=== PATIENT | male | born 1965 | race Caucasian/White ===

== ENCOUNTER 2020-09-02 19:19 | Inpatient (IN) | payer OTHER ==
[~2020-09-02] VITALS: Ht 188 cm; Wt 111.6 kg
[2020-09-02] MEDS ORDERED: SODIUM CHLORIDE 0.9% 1000ML 1,000 ML IV ONE (19:30)
[2020-09-02 20:11] LABS: BASOPHILS # (AUTO) 0.1 (0.0-0.1); BASOPHILS % 0.6 % (0.0-1.0); EOSINOPHILS # (AUTO) 0.3 (0.0-0.4); EOSINOPHILS % 2.7 % (0.0-6.0); HEMATOCRIT 48.8 % (38.2-49.6); LYMPHOCYTES # (AUTO) 2.1 (1.0-3.2); LYMPHOCYTES % 20.3 % (18.0-39.1); MEAN CORPUSCULAR HEMOGLOBIN 32.9 pg (28-32); MEAN CORPUSCULAR HGB CONC 34.8 g/dL (31-35); MEAN CORPUSCULAR VOLUME 94.4 fL (81-99); MONOCYTES # (AUTO) 1.1 (0.2-0.8); NEUTROPHILS # (AUTO) 6.6 (2.1-6.9); NEUTROPHILS % 64.8 % (38.7-80.0); PLATELET COUNT 235 x10e3/uL (140-360); RED BLOOD COUNT 5.17 x10e6/uL (4.3-5.7); RED CELL DISTRIBUTION WIDTH 12.6 % (11.7-14.4)
[2020-09-02 20:15] LABS: INR 1.07; PROTHROMBIN TIME 14.6 seconds (11.9-14.5)
[2020-09-02] MEDS: METRONIDAZOLE 500MG/NS 100ML 100 ML IV SCH (20:17)
[2020-09-02 20:24] LABS: ALANINE AMINOTRANSFERASE 24 IU/L (0-55); ALBUMIN 3.9 g/dL (3.5-5.0); ALBUMIN/GLOBULIN RATIO 0.9 (0.8-2.0); ALKALINE PHOSPHATASE 49 IU/L (40-150); ANION GAP 20.3 mmol/L (8-16); BLOOD UREA NITROGEN 11 mg/dL (7-26); BUN/CREATININE RATIO 12 (6-25); CALCIUM 9.3 mg/dL (8.4-10.2); CARBON DIOXIDE 18 mmol/L (22-29); CHLORIDE 100 mmol/L (98-107); CREATININE, SERUM 0.93 mg/dL (0.72-1.25); EST GLOMERULAR FILTRATION RATE > 60 ML/MIN (60-); GLUCOSE 109 mg/dL (74-118); POTASSIUM 4.3 mmol/L (3.5-5.1); SODIUM 134 mmol/L (136-145)
[2020-09-02 20:41] LABS: AMYLASE 33 U/L (25-125); LIPASE 48 U/L (8-78)
[2020-09-02] MEDS ORDERED: ONDANSETRON HCL INJ 2MG/ML 2ML 2 MG/ML VIAL IV PRN (21:15)
[2020-09-02] MEDS: LEVOFLOXACIN 500MG/D5W 100ML 100 ML IV SCH (21:18)
[2020-09-02 22:22] LABS: CLARITY,URINE SL CLOUDY (CLEAR); COLOR,URINE ORANGE (YELLOW); KETONES,URINE 1+ (NEGATIVE); LEUKOCYTE ESTERASE ,URINE NEGATIVE (NEGATIVE); NITRITE,URINE POSITIVE (NEGATIVE); PROTEIN,URINE DIPSTICK NEGATIVE (NEGATIVE); URINE UROBILINOGEN 0.2 mg/dL (0.2 - 1)
[2020-09-02 22:28] LABS: BACTERIA,URINE FEW /HPF; EPITHELIAL CELLS,URINE RARE /LPF; MUCUS,URINE MODERATE (RARE); RBC,URINE 0-5 /HPF (0-5); WBC,URINE (MAN) 0-5 /HPF (0-5)
[2020-09-02] MEDS: SODIUM CHLORIDE 0.9% 1000ML 1,000 ML IV SCH (22:30)
[2020-09-03] VITALS (9 sets, daily range): BP systolic 105–135; BP diastolic 70–97
[2020-09-03] MEDS ORDERED: OMEPRAZOLE20 M1 PO (00:40)
[2020-09-03] MEDS ORDERED: ATENOLOL50 MG PO (00:40)
[2020-09-03] MEDS: METRONIDAZOLE 500MG/NS 100ML 100 ML IV SCH ×4 (01:36→16:42)
[2020-09-03 04:55] LABS: BASOPHILS # (AUTO) 0.1 (0.0-0.1); BASOPHILS % 0.6 % (0.0-1.0); EOSINOPHILS # (AUTO) 0.2 (0.0-0.4); EOSINOPHILS % 2.1 % (0.0-6.0); HEMATOCRIT 40.9 % (38.2-49.6); HEMOGLOBIN 13.8 g/dL (14.0-18.0); LYMPHOCYTES # (AUTO) 1.3 (1.0-3.2); LYMPHOCYTES % 15.5 % (18.0-39.1); MEAN CORPUSCULAR HEMOGLOBIN 32.9 pg (28-32); MEAN CORPUSCULAR HGB CONC 33.7 g/dL (31-35); MEAN CORPUSCULAR VOLUME 97.6 fL (81-99); MONOCYTES % 12.1 % (4.4-11.3); NEUTROPHILS # (AUTO) 5.7 (2.1-6.9); NEUTROPHILS % 69.5 % (38.7-80.0); PLATELET COUNT 182 x10e3/uL (140-360); RED BLOOD COUNT 4.19 x10e6/uL (4.3-5.7); RED CELL DISTRIBUTION WIDTH 12.5 % (11.7-14.4)
[2020-09-03 05:30] LABS: ALANINE AMINOTRANSFERASE 19 IU/L (0-55); ALBUMIN 3.4 g/dL (3.5-5.0); ALBUMIN/GLOBULIN RATIO 0.9 (0.8-2.0); ALKALINE PHOSPHATASE 58 IU/L (40-150); ANION GAP 17.8 mmol/L (8-16); BLOOD UREA NITROGEN 11 mg/dL (7-26); BUN/CREATININE RATIO 14 (6-25); CALCIUM 8.8 mg/dL (8.4-10.2); CARBON DIOXIDE 21 mmol/L (22-29); CHLORIDE 102 mmol/L (98-107); CREATININE, SERUM 0.81 mg/dL (0.72-1.25); EST GLOMERULAR FILTRATION RATE > 60 ML/MIN (60-); GLUCOSE 93 mg/dL (74-118); POTASSIUM 3.8 mmol/L (3.5-5.1); SODIUM 137 mmol/L (136-145)
[2020-09-03] MEDS ORDERED: DICLOFENAC SODI50 MG PO (10:15)
[2020-09-03] MEDS ORDERED: FENOFIBRATE145 M1 PO (10:15)
[2020-09-03] MEDS ORDERED: ROSUVASTATIN CA10 MG PO (10:15)
[2020-09-03] MEDS ORDERED: LEVOTHYROXINE25 MCG PO (10:15)
[2020-09-03] MEDS ORDERED: AMLODIPINE BESY10 MG PO (10:15)
[2020-09-03] MEDS ORDERED: EZETIMIBE10 MG PO (10:15)
[2020-09-03] MEDS ORDERED: ALPRAZOLAM1 MG PO (10:15)
[2020-09-03] MEDS ORDERED: VITAMIN D3 PO (10:39)
[2020-09-03] MEDS ORDERED: ALPRAZOLAM 1 MG TAB PO PRN (10:45)
[2020-09-03] MEDS ORDERED: VITAMIN D3 50000 UNIT PO SCH (10:45)
[2020-09-03] MEDS: SODIUM CHLORIDE 0.9% 1000ML 1,000 ML IV SCH ×2 (10:49→13:15)
[2020-09-03] MEDS: AMLODIPINE BESYLATE 10 MG TAB PO SCH (11:18)
[2020-09-03] MEDS: ATENOLOL 50 MG TAB PO SCH (11:18)
[2020-09-03] MEDS: ACETAMINOPHEN 325 MG TAB PO PRN (11:18)
[2020-09-03] MEDS: LEVOFLOXACIN 500MG/D5W 100ML 100 ML IV SCH (18:30)
[2020-09-03] MEDS: FENOFIBRATE 145 MG TAB PO SCH (19:52)
[2020-09-04] VITALS (8 sets, daily range): BP systolic 102–122; BP diastolic 72–90
[2020-09-04] MEDS: SODIUM CHLORIDE 0.9% 1000ML 1,000 ML IV SCH ×5 (01:36→21:15)
[2020-09-04] MEDS: METRONIDAZOLE 500MG/NS 100ML 100 ML IV SCH ×4 (05:57→17:00)
[2020-09-04] MEDS: LEVOTHYROXINE SODIUM 25 MCG TABLET PO SCH (05:57)
[2020-09-04] MEDS: PANTOPRAZOLE SOD 40 MG TABEC PO SCH (07:31)
[2020-09-04] MEDS: EZETIMIBE 10 MG TAB PO SCH (08:03)
[2020-09-04] MEDS: AMLODIPINE BESYLATE 10 MG TAB PO SCH (08:03)
[2020-09-04] MEDS: ATENOLOL 50 MG TAB PO SCH (08:03)
[2020-09-04] MEDS: ACETAMINOPHEN 325 MG TAB PO PRN (11:17)
[2020-09-04] MEDS ORDERED: DIATRIZOATE MEGL/DIATRIZOA SOD 30 ML BTL PO ONE (17:45)
[2020-09-04] MEDS: LEVOFLOXACIN 500MG/D5W 100ML 100 ML IV SCH (20:35)
[2020-09-04] MEDS: FENOFIBRATE 145 MG TAB PO SCH (20:35)
[2020-09-05] MEDS: METRONIDAZOLE 500MG/NS 100ML 100 ML IV SCH ×3 (00:47→11:00)
[2020-09-05 04:10] VITALS: BP 127/87
[2020-09-05] MEDS: SODIUM CHLORIDE 0.9% 1000ML 1,000 ML IV SCH (05:15)
[2020-09-05] MEDS: LEVOTHYROXINE SODIUM 25 MCG TABLET PO SCH (05:18)
[2020-09-05 05:27] LABS: BASOPHILS % 0.3 % (0.0-1.0); EOSINOPHILS # (AUTO) 0.2 (0.0-0.4); EOSINOPHILS % 3.1 % (0.0-6.0); HEMATOCRIT 40.5 % (38.2-49.6); HEMOGLOBIN 13.6 g/dL (14.0-18.0); LYMPHOCYTES % 16.4 % (18.0-39.1); MEAN CORPUSCULAR HEMOGLOBIN 32.4 pg (28-32); MEAN CORPUSCULAR HGB CONC 33.6 g/dL (31-35); MEAN CORPUSCULAR VOLUME 96.4 fL (81-99); MONOCYTES # (AUTO) 0.7 (0.2-0.8); MONOCYTES % 11.5 % (4.4-11.3); NEUTROPHILS % 68.4 % (38.7-80.0); PLATELET COUNT 183 x10e3/uL (140-360); RED CELL DISTRIBUTION WIDTH 12.4 % (11.7-14.4)
[2020-09-05 05:51] LABS: ANION GAP 16.5 mmol/L (8-16); BLOOD UREA NITROGEN 5 mg/dL (7-26); BUN/CREATININE RATIO 6 (6-25); CALCIUM 8.5 mg/dL (8.4-10.2); CARBON DIOXIDE 19 mmol/L (22-29); CHLORIDE 104 mmol/L (98-107); CREATININE, SERUM 0.78 mg/dL (0.72-1.25); EST GLOMERULAR FILTRATION RATE > 60 ML/MIN (60-); GLUCOSE 89 mg/dL (74-118); POTASSIUM 3.5 mmol/L (3.5-5.1); SODIUM 136 mmol/L (136-145)
[2020-09-05 07:39] VITALS: BP 136/89
[2020-09-05 07:52] VITALS: BP 136/89
[2020-09-05] MEDS: PANTOPRAZOLE SOD 40 MG TABEC PO SCH (08:13)
[2020-09-05] MEDS: EZETIMIBE 10 MG TAB PO SCH (08:14)
[2020-09-05] MEDS: ATENOLOL 50 MG TAB PO SCH (08:14)
[2020-09-05] MEDS: AMLODIPINE BESYLATE 10 MG TAB PO SCH (08:14)
[2020-09-05] MEDS ORDERED: SIMETHICONE 80 MG CHEW PO PRN (08:15)
[2020-09-05] MEDS ORDERED: ERGOCALCIFEROL 50,000 UNIT CAP PO SCH (09:00)
[2020-09-05 11:36] VITALS: BP 127/84
== END 2020-09-05 16:12 | disposition home or self-care (01) | DRG 392 ==
LOC: ER 19:26 → ERHOLD 21:15 → IMCU 09-03 00:01
PROVIDERS: ADMIT Internal Medicine; ATTEND Internal Medicine
DX: K57.20 Diverticulitis of large intestine with perforation and abscess without bleeding (principal); I10 Essential (primary) hypertension; E78.00 Pure hypercholesterolemia, unspecified; Z88.5 Allergy status to narcotic agent; Z88.8 Allergy status to other drugs, medicaments and biological substances; E11.9 Type 2 diabetes mellitus without complications; Z72.0 Tobacco use; R16.0 Hepatomegaly, not elsewhere classified; E03.9 Hypothyroidism, unspecified; N42.83 Cyst of prostate; Z20.822 Contact with and (suspected) exposure to COVID-19
CPT/HCPCS: 36415; 74176; 80048; 80053; 81001; 82150; 83605; 83690; 85025; 85610; 85730; 87040; 93005; J1956; J7030; U0002

== ENCOUNTER 2020-10-12 08:29 | Inpatient (IN) | payer OTHER ==
[2020-10-07 11:20] LABS: BASOPHILS % 0.1 % (0.0-1.0); HEMATOCRIT 44.9 % (38.2-49.6); HEMOGLOBIN 14.9 g/dL (14.0-18.0); LYMPHOCYTES # (AUTO) 0.8 (1.0-3.2); LYMPHOCYTES % 9.9 % (18.0-39.1); MEAN CORPUSCULAR HEMOGLOBIN 32.5 pg (28-32); MEAN CORPUSCULAR HGB CONC 33.2 g/dL (31-35); MONOCYTES # (AUTO) 0.6 (0.2-0.8); MONOCYTES % 7.4 % (4.4-11.3); NEUTROPHILS # (AUTO) 6.7 (2.1-6.9); NEUTROPHILS % 82.2 % (38.7-80.0); PLATELET COUNT 182 x10e3/uL (140-360); RED BLOOD COUNT 4.58 x10e6/uL (4.3-5.7); RED CELL DISTRIBUTION WIDTH 13.7 % (11.7-14.4)
[2020-10-07 11:42] LABS: ANION GAP 17.3 mmol/L (8-16); BLOOD UREA NITROGEN 9 mg/dL (7-26); BUN/CREATININE RATIO 8 (6-25); CARBON DIOXIDE 25 mmol/L (22-29); CHLORIDE 104 mmol/L (98-107); CREATININE, SERUM 1.09 mg/dL (0.72-1.25); EST GLOMERULAR FILTRATION RATE > 60 ML/MIN (60-); GLUCOSE 149 mg/dL (74-118); POTASSIUM 4.3 mmol/L (3.5-5.1); SODIUM 142 mmol/L (136-145)
[~2020-10-12] VITALS: Ht 188 cm; Wt 110.2 kg
[~2020-10-12 08:29] MED LIST: ALPRAZOLAM1 MG PO; AMLODIPINE BESY10 MG PO; ATENOLOL50 MG PO; COQ1050 MG PO; DICLOFENAC SODI50 MG PO; EZETIMIBE10 MG PO; FENOFIBRATE145 M1 PO; LEVOTHYROXINE25 MCG PO; OMEPRAZOLE20 M1 PO; ROSUVASTATIN CA10 MG PO; VITAMIN D3 PO
[2020-10-12] MEDS ORDERED: CEFOXITIN 1GM/0.9% NS 50ML 100 ML IV ONE (08:52)
[2020-10-12] MEDS ORDERED: BUPIVACAINE HCL 0.5% INJ 30 ML VIAL INJ ONE (09:21)
[2020-10-12] MEDS ORDERED: BUPIVACAINE LIPOSOME/PF 266 MG/20 ML IJ ONE (11:12)
[2020-10-12] MEDS ORDERED: ACETAMINOPHEN 1000 MG/100 ML IV PRN (11:15)
[2020-10-12] MEDS ORDERED: NALOXONE HCL INJ 0.4 MG/ML AMP IV PRN (11:15)
[2020-10-12] MEDS ORDERED: DIPHENHYDRAMINE HCL 25 MG CAP PO PRN (11:15)
[2020-10-12] MEDS ORDERED: ONDANSETRON HCL INJ 2MG/ML 2ML 2 MG/ML VIAL IV PRN (11:15)
[2020-10-12] MEDS: HYDROMORPHONE 0.2MG/ML-SOD CHL 30ML PCA SYRINGE IV PRN (11:39)
[2020-10-12] MEDS ORDERED: ROCURONIUM BROMIDE 10 MG/ML 5ML VIAL IV ONE (13:48)
[2020-10-12] MEDS ORDERED: DEXAMETHASONE SOD PHOS INJ 4 MG/ML VIAL ONE (13:48)
[2020-10-12] MEDS ORDERED: SEVOFLURANE INHAL SOLN 250 ML PEN BTL ONE (13:48)
[2020-10-12] MEDS ORDERED: NEOSTIGMINE 1 MG/ML 10ML VIAL ONE (13:48)
[2020-10-12] MEDS ORDERED: LIDOCAINE HCL 2% LOCAL INJ 5 ML SDV VIAL INJ ONE (13:48)
[2020-10-12] MEDS ORDERED: ONDANSETRON HCL INJ 2MG/ML 2ML 2 MG/ML VIAL ONE (13:48)
[2020-10-12] MEDS ORDERED: POVIDONE IODINE 0.05% 0.05 % ML PO ONE (13:48)
[2020-10-12] MEDS ORDERED: GLYCOPYRROLATE INJ 0.2 MG/ML VIAL ONE (13:48)
[2020-10-12] MEDS ORDERED: PROPOFOL IV EMULSION 10 MG/ML 20 ML VIAL ONE (13:48)
[2020-10-12] MEDS ORDERED: FENTANYL CITRATE/PF 100MCG/2 ML INJ ONE (14:07)
[2020-10-12] MEDS ORDERED: MIDAZOLAM HCL 2 MG/2 ML VIAL ONE (14:07)
[2020-10-12] MEDS: CEFOXITIN 2GM/ D5W 50ML 50 ML IV SCH ×2 (15:00→23:34)
[2020-10-12 15:29] VITALS: BP 110/83
[2020-10-12 15:32] VITALS: BP 110/83
[2020-10-12 16:07] VITALS: BP 110/83
[2020-10-12] MEDS: SODIUM CHLORIDE 0.9% 1000ML 1,000 ML IV SCH ×2 (16:45→23:34)
[2020-10-12] MEDS: FAMOTIDINE 20 MG TAB PO SCH (16:45)
[2020-10-12 20:00] VITALS: BP_SYST 100; BP_SYST 110; BP_DIAS 79; BP_DIAS 83
[2020-10-13] VITALS (8 sets, daily range): BP systolic 92–151; BP diastolic 59–101
[2020-10-13] MEDS: CEFOXITIN 2GM/ D5W 50ML 50 ML IV SCH ×2 (02:50→08:33)
[2020-10-13 06:19] LABS: BASOPHILS % 0.1 % (0.0-1.0); HEMATOCRIT 33.6 % (38.2-49.6); HEMOGLOBIN 11.5 g/dL (14.0-18.0); LYMPHOCYTES % 10.2 % (18.0-39.1); MEAN CORPUSCULAR HEMOGLOBIN 33.4 pg (28-32); MEAN CORPUSCULAR HGB CONC 34.2 g/dL (31-35); MEAN CORPUSCULAR VOLUME 97.7 fL (81-99); MONOCYTES # (AUTO) 1.1 (0.2-0.8); NEUTROPHILS # (AUTO) 7.7 (2.1-6.9); NEUTROPHILS % 78.3 % (38.7-80.0); PLATELET COUNT 143 x10e3/uL (140-360); RED BLOOD COUNT 3.44 x10e6/uL (4.3-5.7)
[2020-10-13 06:52] LABS: BLOOD UREA NITROGEN 18 mg/dL (7-26); BUN/CREATININE RATIO 18 (6-25); CARBON DIOXIDE 22 mmol/L (22-29); CHLORIDE 99 mmol/L (98-107); CREATININE, SERUM 1.02 mg/dL (0.72-1.25); EST GLOMERULAR FILTRATION RATE > 60 ML/MIN (60-); GLUCOSE 137 mg/dL (74-118); SODIUM 132 mmol/L (136-145)
[2020-10-13] MEDS: FAMOTIDINE 20 MG TAB PO SCH ×2 (08:32→17:58)
[2020-10-13] MEDS: HYDROMORPHONE 0.2MG/ML-SOD CHL 30ML PCA SYRINGE IV PRN (08:42)
[2020-10-13] MEDS: SODIUM CHLORIDE 0.9% 1000ML 1,000 ML IV SCH ×2 (08:44→17:58)
[2020-10-13] MEDS ORDERED: IBUPROFEN 600 MG TAB PO PRN (09:00)
[2020-10-13] MEDS: AMLODIPINE BESYLATE 10 MG TAB PO SCH (11:59)
[2020-10-13] MEDS: ATENOLOL 50 MG TAB PO SCH (11:59)
[2020-10-13] MEDS: NICOTINE 14 MG/EA PATCH TOP SCH (12:00)
[2020-10-13] MEDS: EZETIMIBE 10 MG TAB PO SCH (12:00)
[2020-10-13] MEDS: ALPRAZOLAM 1 MG TAB PO PRN (12:00)
[2020-10-13] MEDS: BUSPIRONE HCL 5 MG TAB PO SCH (17:58)
[2020-10-13] MEDS: KETOROLAC TROMETHAMINE 30 MG/ML VIAL IV PRN (17:59)
[2020-10-13] MEDS: FENOFIBRATE 145 MG TAB PO SCH (20:36)
[2020-10-14] VITALS (8 sets, daily range): BP systolic 104–123; BP diastolic 66–81
[2020-10-14] MEDS: SODIUM CHLORIDE 0.9% 1000ML 1,000 ML IV SCH ×2 (03:15→17:25)
[2020-10-14] MEDS: LEVOTHYROXINE SODIUM 25 MCG TABLET PO SCH (06:00)
[2020-10-14] MEDS: HYDROMORPHONE 0.2MG/ML-SOD CHL 30ML PCA SYRINGE IV PRN (07:26)
[2020-10-14] MEDS ORDERED: ONDANSETRON HCL 4 MG ORAL DISINTEGRATING TAB PO PRN (08:30)
[2020-10-14] MEDS: NICOTINE 14 MG/EA PATCH TOP SCH (09:00)
[2020-10-14] MEDS: AMLODIPINE BESYLATE 10 MG TAB PO SCH (10:39)
[2020-10-14] MEDS: FAMOTIDINE 20 MG TAB PO SCH ×2 (10:39→17:25)
[2020-10-14] MEDS: BUSPIRONE HCL 5 MG TAB PO SCH ×2 (10:39→17:25)
[2020-10-14] MEDS: PANTOPRAZOLE SOD 40 MG TABEC PO SCH (10:39)
[2020-10-14] MEDS: EZETIMIBE 10 MG TAB PO SCH (10:40)
[2020-10-14] MEDS: ATENOLOL 50 MG TAB PO SCH (10:40)
[2020-10-14] MEDS: ALPRAZOLAM 1 MG TAB PO PRN (10:50)
[2020-10-14] MEDS ORDERED: FUROSEMIDE INJ 10 MG/ML 2 ML VIAL IV ONE (11:30)
[2020-10-14] MEDS: KETOROLAC TROMETHAMINE 30 MG/ML VIAL IV PRN (20:07)
[2020-10-14] MEDS: FENOFIBRATE 145 MG TAB PO SCH (20:07)
[2020-10-15] VITALS (8 sets, daily range): BP systolic 107–130; BP diastolic 72–86
[2020-10-15] MEDS: HYDROMORPHONE 0.2MG/ML-SOD CHL 30ML PCA SYRINGE IV PRN (03:45)
[2020-10-15 05:49] LABS: BASOPHILS # (AUTO) 0.1 (0.0-0.1); BASOPHILS % 0.4 % (0.0-1.0); EOSINOPHILS # (AUTO) 0.3 (0.0-0.4); EOSINOPHILS % 2.7 % (0.0-6.0); HEMOGLOBIN 9.6 g/dL (14.0-18.0); LYMPHOCYTES # (AUTO) 2.5 (1.0-3.2); LYMPHOCYTES % 20.6 % (18.0-39.1); MEAN CORPUSCULAR HEMOGLOBIN 33.4 pg (28-32); MEAN CORPUSCULAR HGB CONC 33.1 g/dL (31-35); MONOCYTES # (AUTO) 1.3 (0.2-0.8); MONOCYTES % 10.6 % (4.4-11.3); NEUTROPHILS % 65.1 % (38.7-80.0); PLATELET COUNT 194 x10e3/uL (140-360); RED BLOOD COUNT 2.87 x10e6/uL (4.3-5.7); RED CELL DISTRIBUTION WIDTH 14.5 % (11.7-14.4)
[2020-10-15] MEDS: LEVOTHYROXINE SODIUM 25 MCG TABLET PO SCH (06:00)
[2020-10-15 06:09] LABS: ANION GAP 18.5 mmol/L (8-16); BLOOD UREA NITROGEN 12 mg/dL (7-26); BUN/CREATININE RATIO 14 (6-25); CALCIUM 8.4 mg/dL (8.4-10.2); CARBON DIOXIDE 19 mmol/L (22-29); CHLORIDE 98 mmol/L (98-107); CREATININE, SERUM 0.88 mg/dL (0.72-1.25); EST GLOMERULAR FILTRATION RATE > 60 ML/MIN (60-); GLUCOSE 106 mg/dL (74-118); POTASSIUM 3.5 mmol/L (3.5-5.1); SODIUM 132 mmol/L (136-145)
[2020-10-15] MEDS ORDERED: HYDROCODONE/APAP 7.5MG-325MG 1 EA TAB PO PRN (06:15)
[2020-10-15] MEDS ORDERED: SODIUM CHLORIDE FLUSH 10 ML SYR INJ PRN (06:15)
[2020-10-15] MEDS: FAMOTIDINE 20 MG TAB PO SCH ×2 (07:30→17:20)
[2020-10-15] MEDS: PANTOPRAZOLE SOD 40 MG TABEC PO SCH (07:30)
[2020-10-15] MEDS: AMLODIPINE BESYLATE 10 MG TAB PO SCH (08:43)
[2020-10-15] MEDS: EZETIMIBE 10 MG TAB PO SCH (08:43)
[2020-10-15] MEDS: ATENOLOL 50 MG TAB PO SCH (08:43)
[2020-10-15] MEDS: BUSPIRONE HCL 5 MG TAB PO SCH ×2 (08:51→17:20)
[2020-10-15] MEDS: NICOTINE 14 MG/EA PATCH TOP SCH (08:51)
[2020-10-15] MEDS: KETOROLAC TROMETHAMINE 30 MG/ML VIAL IV PRN (09:50)
[2020-10-15] MEDS: SENNOSIDES 8.6 MG TAB PO SCH (11:06)
[2020-10-15] MEDS: DOCUSATE SODIUM 100 MG CAP PO SCH ×2 (11:06→17:20)
[2020-10-15] MEDS: ALPRAZOLAM 1 MG TAB PO PRN (11:21)
[2020-10-15] MEDS: FENOFIBRATE 145 MG TAB PO SCH (20:22)
[2020-10-16 00:15] VITALS: BP 126/83
[2020-10-16 04:00] VITALS: BP 133/82
[2020-10-16] MEDS: LEVOTHYROXINE SODIUM 25 MCG TABLET PO SCH (04:58)
[2020-10-16] MEDS: PANTOPRAZOLE SOD 40 MG TABEC PO SCH (07:30)
[2020-10-16] MEDS: FAMOTIDINE 20 MG TAB PO SCH (07:30)
[2020-10-16 07:54] VITALS: BP 122/79
[2020-10-16 08:46] VITALS: BP 122/79
[2020-10-16] MEDS: DOCUSATE SODIUM 100 MG CAP PO SCH (08:52)
[2020-10-16] MEDS: BUSPIRONE HCL 5 MG TAB PO SCH (08:52)
[2020-10-16] MEDS: SENNOSIDES 8.6 MG TAB PO SCH (08:53)
[2020-10-16] MEDS: ATENOLOL 50 MG TAB PO SCH (08:53)
[2020-10-16] MEDS: AMLODIPINE BESYLATE 10 MG TAB PO SCH (08:53)
[2020-10-16] MEDS: EZETIMIBE 10 MG TAB PO SCH (08:53)
[2020-10-16] MEDS ORDERED: NICOTINE 7 MG PATCH TOP SCH (09:00)
[2020-10-16 11:12] VITALS: BP 112/77
== END 2020-10-16 12:41 | disposition home or self-care (01) | DRG 330 ==
LOC: OR 08:29 → PACU V 12:19 → MED/SURG 15:03
PROVIDERS: ADMIT Surgery; ATTEND Surgery
PROC: 0DTN0ZZ Resection of Sigmoid Colon, Open Approach (ICD-10-PCS; 2020-10-12)
PROC: 0TQB0ZZ Repair Bladder, Open Approach (ICD-10-PCS; 2020-10-12)
PROC: 0DJD4ZZ Inspection of Lower Intestinal Tract, Percutaneous Endoscopic Approach (ICD-10-PCS; principal; 2020-10-12 10:30)
DX: K57.92 Diverticulitis of intestine, part unspecified, without perforation or abscess without bleeding (principal); N32.1 Vesicointestinal fistula; I10 Essential (primary) hypertension; Z20.822 Contact with and (suspected) exposure to COVID-19; K59.00 Constipation, unspecified; G89.18 Other acute postprocedural pain; K21.9 Gastro-esophageal reflux disease without esophagitis; E03.9 Hypothyroidism, unspecified
CPT/HCPCS: 36415; 71045; 80048; 85025; 88307; 96360; J0694; J1100; J1885; J1940; J2001; J2250; J2405; J2710; J3010; J7030; U0002

== ENCOUNTER → 2020-11-01 | Outpatient (CLI) | payer OTHER ==
[~2020-11-01] MED LIST changes: +IOTHALAMATE MEGLUMINE 17.20% 250 ML BTL ONE
== END ==
LOC: DX 12:01
PROVIDERS: ATTEND Surgery
DX: N32.1 Vesicointestinal fistula (principal)
CPT/HCPCS: 74430; Q9958

== ENCOUNTER 2022-07-05 12:13 | Emergency (ER) | payer OTHER ==
[~2022-07-05 12:13] MED LIST changes: -IOTHALAMATE MEGLUMINE 17.20% 250 ML BTL ONE
== END 2022-07-05 17:31 | disposition left against medical advice (07) ==
LOC: ER 12:30
DX: E86.0 Dehydration (principal)